=== PATIENT | male | born 1940 | race Hispanic/Latino ===

== ENCOUNTER 2018-11-22 05:30 | Emergency (ER) | payer MEDICARE ==
--- NOTE | 2018-11-22 05:59 | Emergency Department Report ---
Stated Complaint: RT FLANK PAIN - HPI History of Present Illness: Mr. Ratliff is a 78 yo male with hx of kidney stone and kidney "inflammation". Currently takiing antibiotics. He presents with severe right flank pain. MSE screening note: Focused history and physical exam performed. Due to findings the following was ordered: ED Disposition for MSE Condition: Stable Referrals: PRIMARY CARE, [Primary Care Provider] - 3-5 Days
[2018-11-22] MEDS ORDERED: HYDROmorphone 1 MG/1 ML INJ IV ONE ×2 (06:00→07:08)
[2018-11-22] MEDS ORDERED: SODIUM CHLORIDE 0.9% 500 ML 500 ML IV ONE (06:00)
[2018-11-22] MEDS ORDERED: ONDANSETRON 4 MG/2 ML INJ IV ONE (06:01)
[2018-11-22 06:36] VITALS: BP 115/68
[2018-11-22 06:53] LABS: Albumin 3.8 g/dL (3.9-5); Calcium 8.8 mg/dL (8.4-10.2)
[2018-11-22 06:58] LABS: Hemoglobin 13.8 gm/dl (11.8-15.2); Mean Corpuscular HGB Conc 34 % (32-34); Mean Corpuscular Volume 91 fl (84-94); Red Blood Count 4.51 M/mm3 (3.65-5.03); Red Cell Distribution Width 13.5 % (13.2-15.2)
[2018-11-22 06:59] LABS: Basophils # (Auto) 0.1 K/mm3 (0.0-0.1); Basophils % (Auto) 0.8 % (0.0-1.8); Eosinophils # (Auto) 0.2 K/mm3 (0.0-0.4); Eosinophils % (Auto) 1.8 % (0.0-4.3); Lymphocytes # (Auto) 1.5 K/mm3 (1.2-5.4); Lymphocytes % (Auto) 11.3 % (13.4-35.0); Monocytes # (Auto) 1.2 K/mm3 (0.0-0.8); Platelet Count 215 K/mm3 (140-440)
--- NOTE | 2018-11-22 07:20 | Emergency Department Report ---
HPI - General Chief Complaint: Abdominal Pain Time Seen by Provider: 11/22/18 06:56 - HPI HPI: Room 17 The patient is a 78-year-old male presenting with the chief complaint of right flank pain. Patient states for the past 2 nights she's had a constant pain in his right flank described as burning in nature. Patient denies dysuria or hematuria. Patient denies nausea vomiting. Patient states he's had oliguria. Patient admits to a subjective fever Location: [See above] Duration: [See above] Quality: [See above] Severity: [See above] Timing: [See above] Context: [See above] Modifying factors: [See above] Associated signs and symptoms: [see above] ED Past Medical Hx - Past Medical History Previous Medical History?: Yes Hx Hypertension: Yes Hx Diabetes: Yes Hx Kidney Stones: Yes Additional medical history: Pancreatitis - Family History Family history: no significant - Social History Smoking Status: Unknown if ever smoked Substance Use Type: None - Medications Home Medications: Home Medications Medication Instructions Recorded Confirmed Last Taken Type Ondansetron [Zofran ODT TAB] 8 mg PO Q8HR #20 tab.rapdis 11/22/18 Unknown Rx levoFLOXacin [Levofloxacin] 500 mg PO QDAY #10 tablet 11/22/18 Unknown Rx oxyCODONE /ACETAMINOPHEN [Percocet 1 - 2 tab PO Q6HR PRN #20 tablet 11/22/18 Unknown Rx 5/325] ED Review of Systems ROS: Stated complaint: RT FLANK PAIN Other details as noted in HPI Constitutional: fever (subjective) Eyes: denies: eye pain ENT: denies: throat pain Respiratory: no symptoms reported Cardiovascular: denies: chest pain Gastrointestinal: abdominal pain. denies: nausea, vomiting Genitourinary: denies: dysuria, hematuria Musculoskeletal: back pain Neurological: denies: headache Physical Exam - Physical Exam Vital Signs: Vital Signs 11/22/18 11/22/18 06:29 06:35 Temperature 98.1 F Pulse Rate 87 Respiratory 10 L 10 L Rate Blood Pressure 115/68 [Right] O2 Sat by Pulse 95 95 Oximetry Physical Exam: GENERAL: The patient is well-developed well-nourished male lying on stretcher appearing to be in mild discomfort. [] HEENT: Normocephalic. Atraumatic. Extraocular motions are intact. Patient has moist mucous membranes. NECK: Trachea midline CHEST/LUNGS: Clear to auscultation. There is no respiratory distress noted. HEART/CARDIOVASCULAR: Regular. There is no tachycardia. There is no gallop rub or murmur. ABDOMEN: Abdomen is soft, nontender. Patient has normal bowel sounds. There is no abdominal distention. SKIN: There is no rash. There is no edema. There is no diaphoresis. NEURO: The patient is awake, alert, and oriented. The patient is cooperative. The patient has normal speech MUSCULOSKELETAL: There is right CVA tenderness. There is no evidence of acute injury. ED Course Vital Signs 11/22/18 11/22/18 06:29 06:35 Temperature 98.1 F Pulse Rate 87 Respiratory 10 L 10 L Rate Blood Pressure 115/68 [Right] O2 Sat by Pulse 95 95 Oximetry - Reevaluation(s) Reevaluation #1: 11/22/18 09:05 Patient's pain controlled - Consultations Consultation #1: 11/22/18 09:47 Case discussed with urologist Dr. Vega-can see patient in the office Sunday ED Medical Decision Making - Lab Data Result diagrams: 11/22/18 06:23 11/22/18 06:23 Laboratory Tests 11/22/18 11/22/18 11/22/18 06:23 06:23 06:23 WBC 13.5 H RBC 4.51 Hgb 13.8 Hct 41.0 MCV 91 MCH 31 MCHC 34 RDW 13.5 Plt Count 215 Lymph % (Auto) 11.3 L [place] % (Auto) 9.0 H Eos % (Auto) 1.8 Baso % (Auto) 0.8 Lymph # 1.5 [place] # 1.2 H Eos # 0.2 Baso # 0.1 Seg Neutrophils % 77.1 H Seg Neutrophils # 10.4 H Sodium 139 Potassium 4.6 Chloride 100.9 Carbon Dioxide 24 Anion Gap 19 BUN 17 Creatinine 1.6 H Estimated GFR 42 BUN/Creatinine Ratio 11 Glucose 158 H Calcium 8.8 Total Bilirubin 0.80 AST 26 ALT 30 Alkaline Phosphatase 44 Total Protein 6.2 L Albumin 3.8 L Albumin/Globulin Ratio 1.6 Lipase 15 Urine Color Urine Turbidity Urine pH Ur Specific [place] Urine Protein Urine Glucose (UA) Urine Ketones Urine Blood Urine Nitrite Urine Bilirubin Urine Urobilinogen Ur Leukocyte Esterase Urine WBC (Auto) Urine RBC (Auto) U Epithel Cells (Auto) Urine Bacteria (Auto) Urine Mucus 11/22/18 08:19 WBC RBC Hgb Hct MCV MCH MCHC RDW Plt Count Lymph % (Auto) [place] % (Auto) Eos % (Auto) Baso % (Auto) Lymph # [place] # Eos # Baso # Seg Neutrophils % Seg Neutrophils # Sodium Potassium Chloride Carbon Dioxide Anion Gap BUN Creatinine Estimated GFR BUN/Creatinine Ratio Glucose Calcium Total Bilirubin AST ALT Alkaline Phosphatase Total Protein Albumin Albumin/Globulin Ratio Lipase Urine Color Yellow Urine Turbidity Cloudy Urine pH 5.0 Ur Specific [place] 1.018 Urine Protein 30 mg/dl Urine Glucose (UA) Neg Urine Ketones Neg Urine Blood Lg Urine Nitrite Neg Urine Bilirubin Neg Urine Urobilinogen < 2.0 Ur Leukocyte Esterase Lg Urine WBC (Auto) > 182.0 H Urine RBC (Auto) > 182.0 U Epithel Cells (Auto) 1.0 Urine Bacteria (Auto) 1+ Urine Mucus Few - Radiology Data Radiology results: report reviewed (CT abdomen and pelvis), image reviewed (CT abdomen and pelvis) [place] [address] Cat Scan Report Signed Patient: MATEO FERNANDES MR#: [id number] : 1940 Acct:[id number] Age/Sex: 78 / M ADM Date: 11/22/18 Loc: ED Attending Dr: Ordering Physician: Ching Sterling MD Date of Service: 11/22/18 Procedure(s): CT abdomen pelvis wo con Accession Number(s): [id number] cc: Ching Sterling MD CT ABDOMEN AND PELVIS WITHOUT CONTRAST HISTORY: Right flank pain for 2 days COMPARISON: 11/24/2015 TECHNIQUE: Axial CT images were obtained through the abdomen and pelvis without IV contrast. Sagittal and coronal reformatted images. All CT scans at this location are performed using CT dose reduction for ALARA by means of automated exposure control. FINDINGS: CT ABDOMEN: Lung Bases: Clear. Liver: Mild diffuse fatty infiltration. No mass or enlargement. Biliary: 4 or 5 calcified gallstones measuring up to 5 mm are noted in the gallbladder. No biliary dilatation or inflammation. Spleen: No significant abnormality. Unenlarged. Pancreas: No significant abnormality. Adrenals: No significant abnormality. Kidneys: Moderate to severe right hydronephrosis has developed. Multiple stones are identified in the right ureter. There are approximately 5 or 6 calcified stones in the distal right ureter measuring up to 6 mm. There are approximately 10 stones in the mid right ureter measuring up to 5 mm. A 9 mm stone is identified at the right ureteropelvic junction. A large stone in the right renal pelvis measures 2.1 cm. There are also 3 stones in the right kidney measuring 1-2 cm in greatest dimension. No left nephrolithiasis is identified. There are several renal sinus parapelvic cysts in both kidneys. Multiple stones are also identified in the bladder. Most of the stones or millimetric in size. There is a large stone measuring 2.3 cm. Lymphatics: No lymphadenopathy. Vasculature: Moderate diffuse calcifications in the aorta and iliac arteries. No aneurysm. Bowel/Peritoneum: No significant abnormality. No free air. No free fluid. Normal appendix. CT PELVIS: : Bladder stones. Osseous Structures: Mild osteopenia and degenerative changes in the spine. No acute osseous injury or suspicious bony lesion. Additional Findings: None IMPRESSION: Right nephrolithiasis as described above. There are several obstructing stones in the right ureter. Please see above. Multiple bladder stones are also identified. Multiple bilateral renal parapelvic cysts. Mild hepatic steatosis. Cholelithiasis. Atherosclerosis. Signer Name: Leonidas Flores Jr, MD Signed: 11/22/2018 8:07 AM Workstation Name: [id number] Transcribed By: TTR Dictated By: LEONIDAS FLORES JR, MD Electronically Authenticated By: LEONIDAS FLORES JR, MD Signed Date/Time: 11/22/18 0807 DD/ 0759 TD/TT: - Differential Diagnosis renal colic, pyelonephritis Critical care attestation.: If time is entered above; I have spent that time in minutes in the direct care of this critically ill patient, excluding procedure time. ED Disposition Clinical Impression: Acute right flank pain, Renal colic, UTI (urinary tract infection) Disposition: -01 TO HOME OR SELFCARE Is pt being admited?: No Does the pt Need Aspirin: No Condition: Stable Instructions: Renal Colic (ED) Additional Instructions: Return to the emergency department should you develop worsening symptoms, inability to tolerate food or liquids, high fever or any other concerns Prescriptions: levoFLOXacin [Levofloxacin] 500 mg PO QDAY #10 tablet oxyCODONE /ACETAMINOPHEN [Percocet 5/325] 1 - 2 tab PO Q6HR PRN #20 tablet PRN Reason: Pain Ondansetron [Zofran ODT TAB] 8 mg PO Q8HR #20 tab.rapdis Referrals: JUAN MANUEL VEGA MD [Staff Physician] - [facility] (Dr. Vega is a urologist. Please follow-up with him for further evaluation) Time of Disposition: 09:04
--- NOTE | 2018-11-22 08:11 | Cat Scan Report ---
CT ABDOMEN AND PELVIS WITHOUT CONTRAST HISTORY: Right flank pain for 2 days COMPARISON: 11/24/2015 TECHNIQUE: Axial CT images were obtained through the abdomen and pelvis without IV contrast. Sagittal and coronal reformatted images. All CT scans at this location are performed using CT dose reduction for ALARA by means of automated exposure control. FINDINGS: CT ABDOMEN: Lung Bases: Clear. Liver: Mild diffuse fatty infiltration. No mass or enlargement. Biliary: 4 or 5 calcified gallstones measuring up to 5 mm are noted in the gallbladder. No biliary di latation or inflammation. Spleen: No significant abnormality. Unenlarged. Pancreas: No significant abnormality. Adrenals: No significant abnormality. Kidneys: Moderate to severe right hydronephrosis has developed. Multiple stones are identified in the right ureter. There are approximately 5 or 6 calcified stones in the distal right ureter measuring u p to 6 mm. There are approximately 10 stones in the mid right ureter measuring up to 5 mm. A 9 mm sto ne is identified at the right ureteropelvic junction. A large stone in the right renal pelvis measure s 2.1 cm. There are also 3 stones in the right kidney measuring 1-2 cm in greatest dimension. No left nephrolithiasis is identified. There are several renal sinus parapelvic cysts in both kidneys. Multi ple stones are also identified in the bladder. Most of the stones or millimetric in size. There is a large stone measuring 2.3 cm. Lymphatics: No lymphadenopathy. Vasculature: Moderate diffuse calcifications in the aorta and iliac arteries. No aneurysm. Bowel/Peritoneum: No significant abnormality. No free air. No free fluid. Normal appendix. CT PELVIS: : Bladder stones. Osseous Structures: Mild osteopenia and degenerative changes in the spine. No acute osseous injury or suspicious bony lesion. Additional Findings: None IMPRESSION: Right nephrolithiasis as described above. There are several obstructing stones in the right ureter. P lease see above. Multiple bladder stones are also identified. Multiple bilateral renal parapelvic cys ts. Mild hepatic steatosis. Cholelithiasis. Atherosclerosis. Signer Name: Leonidas Flores Jr, MD Signed: 11/22/2018 8:07 AM Workstation Name: [id number]
[2018-11-22 08:49] LABS: Bacteria,Urine 1+ /HPF (Negative); Bilirubin,Urine NEG (Negative); Blood,Urine LG (Negative); Color,Urine Yellow (Yellow); Mucus,Urine FEW /HPF; Urobilinogen,Urine < 2.0 mg/dL (<2.0)
[2018-11-22 08:52] LABS: RBC,Urine > 182.0 /HPF (0.0-6.0); WBC,Urine > 182.0 /HPF (0.0-6.0)
[2018-11-22] MEDS ORDERED: levoFLOXacin 500 MG TAB PO ONE (08:58)
== END 2018-11-22 09:56 | disposition home or self-care (01) ==
LOC: ED 05:30
DX: N39.0 Urinary tract infection, site not specified (principal); N23 Unspecified renal colic; I10 Essential (primary) hypertension; E11.9 Type 2 diabetes mellitus without complications; Z87.442 Personal history of urinary calculi
CPT/HCPCS: 36415; 74176; 80053; 81001; 83690; 85025; 96374; 96375; 99285; J1170; J2405; J7040

== ENCOUNTER 2018-11-26 09:20 | Observation (INO) | payer MEDICARE ==
[2018-11-26] MEDS ORDERED: ONDANSETRON 4 MG/2 ML INJ IV STA (10:13)
[2018-11-26] MEDS ORDERED: SODIUM CHLORIDE 0.9% 1000 ML 500 ML IV ONE (10:13)
[2018-11-26 10:31] LABS: Hematocrit 40.2 % (35.5-45.6); Hemoglobin 13.9 gm/dl (11.8-15.2); Mean Corpuscular HGB Conc 35 % (32-34); Mean Corpuscular Volume 90 fl (84-94); Platelet Count 234 K/mm3 (140-440); Red Blood Count 4.45 M/mm3 (3.65-5.03); Red Cell Distribution Width 13.4 % (13.2-15.2)
--- NOTE | 2018-11-26 10:37 | Emergency Department Report ---
ED Male HPI - General Chief complaint: Tube Replacement Stated complaint: TUBING NEEDED/DOC ORDERED Time Seen by Provider: 11/26/18 09:53 Source: patient Mode of arrival: Ambulatory Limitations: No Limitations - History of Present Illness Initial comments: 78-year-old male with a past medical history of hypercholesterolemia and hypertension as well as diarrhea PT is presented to emergency department for reevaluation of his renal stones. He was initially seen and evaluated in the emergency Department on 11/22/2018 by the emergency room physician who was found to have right nephro physis with several obstructing stones in the right ureter and multiple bladder stones identified. The stones range in size in size from 2.3 cm down to 5 mm. There was about 10 stones that were calculated. After consulting with urology plan was to discharge and was discharged home on Levaquin, oxycodone, Zofran. After full evaluation today he was instructed to return to the emergency department for possible nephrostomy tube placement with interventional radiology up what she returns today. States that his pain is controlled with medication reports no fever, chills, sweats no chest pain or palpitations no nausea vomiting does have some pressure to the lower abdomen and the increased urge to urinate with no burning. Reports no diarrhea no rashes no malaise. Worsens with: urination denies: swelling, mass, fever, nausea/vomiting, incontinence - Related Data Previous Rx's Medication Instructions Recorded Last Taken Type Ondansetron [Zofran ODT TAB] 8 mg PO Q8HR #20 tab.rapdis 11/22/18 Unknown Rx levoFLOXacin [Levofloxacin] 500 mg PO QDAY #10 tablet 11/22/18 Unknown Rx oxyCODONE /ACETAMINOPHEN [Percocet 1 - 2 tab PO Q6HR PRN #20 tablet 11/22/18 Unknown Rx 5/325] Allergies Allergy/AdvReac Type Severity Reaction Status Date / Time Penicillins AdvReac HURTS ALL Unverified 11/24/15 11:17 OVER ED Review of Systems ROS: Stated complaint: TUBING NEEDED/DOC ORDERED Other details as noted in HPI Comment: All other systems reviewed and negative ED Past Medical Hx - Past Medical History Previous Medical History?: Yes Hx Hypertension: Yes Hx Diabetes: Yes Hx Kidney Stones: Yes Additional medical history: Pancreatitis - Social History Smoking Status: Never Smoker - Medications Home Medications: Home Medications Medication Instructions Recorded Confirmed Last Taken Type Ondansetron [Zofran ODT TAB] 8 mg PO Q8HR #20 tab.rapdis 11/22/18 Unknown Rx levoFLOXacin [Levofloxacin] 500 mg PO QDAY #10 tablet 11/22/18 Unknown Rx oxyCODONE /ACETAMINOPHEN [Percocet 1 - 2 tab PO Q6HR PRN #20 tablet 11/22/18 Unknown Rx 5/325] ED Physical Exam - General Limitations: No Limitations General appearance: alert, in no apparent distress - Head Head exam: Present: atraumatic, normocephalic - Eye Eye exam: Present: normal appearance, PERRL, EOMI Pupils: Present: normal accommodation - ENT ENT exam: Present: mucous membranes moist - Neck Neck exam: Present: normal inspection, full ROM - Respiratory Respiratory exam: Present: normal lung sounds bilaterally. Absent: respiratory distress - Cardiovascular Cardiovascular Exam: Present: regular rate, normal rhythm. Absent: systolic murmur, diastolic murmur, rubs, gallop - GI/Abdominal GI/Abdominal exam: Present: soft, tenderness (mild tenderness to the lower abdomen with palpation.), normal bowel sounds, other (no colon sign, no Hsu Dueñas, no Rovsing). Absent: rebound, rigid, organomegaly, mass, bruit, pulsatile mass - Rectal Rectal exam: Present: deferred - Extremities Exam Extremities exam: Present: normal inspection, full ROM, normal capillary refill - Back Exam Back exam: Present: normal inspection, CVA tenderness (R). Absent: vertebral tenderness - Neurological Exam Neurological exam: Present: alert, oriented X3 - Psychiatric Psychiatric exam: Present: normal affect, normal mood - Skin Skin exam: Present: warm, dry, intact, normal color. Absent: rash ED Course Vital Signs 11/26/18 11/26/18 11/26/18 09:20 10:44 10:45 Temperature 97.9 F 98.1 F Pulse Rate 18 L 79 Respiratory 16 14 14 Rate Blood Pressure 152/76 Blood Pressure 131/72 [Right] O2 Sat by Pulse 100 98 97 Oximetry - Consultations Consultation #1: 11/26/18 10:37 Case was discussed with the attending Dr. Smith who had a discussion with Dr. Cardenas who is planning to place a nephrostomy tube plan is to admit after labs and antibiotics. Consultation #2: 11/26/18 10:43 Case was discussed with urology to make aware that the Bob Ratliff was in the emergency department. They are aware of doxepin evaluating the patient at bedside and will follow along if needed during the admission process Consultation #3: 11/26/18 10:43 Phone as attend Abhniav for admission and they are aware of chills with mild but did request to phone back to the ED. Requested that I wait for the 11:00 AM ED Medical Decision Making - Lab Data Result diagrams: 11/26/18 10:21 - Medical Decision Making 78-year-old male with obstructive uropathy due to kidney stones with CT scan confirming certain several stones largest ranging 2.3 cm and return to the emergency department for further evaluation and an approximately [address] greenwood has seen him at bedside plan is to admit hydrated and placed on IV antibiotics and place also nephrostomy tube for removal of the stones. Urology was consult and case was discussed as well. He's been admitted to the hospital ist Dr. Lynne 11:06AM. Critical care attestation.: If time is entered above; I have spent that time in minutes in the direct care of this critically ill patient, excluding procedure time. ED Disposition Clinical Impression: Obstructive uropathy Disposition: OP ADMIT IP TO THIS HOSP Is pt being admited?: Yes Does the pt Need Aspirin: No Condition: Stable
--- NOTE | 2018-11-26 11:00 | Event Note ---
Date of service: 11/26/18 Face to Face: Previous medical records are reviewed and appreciated. This is a 78-year-old gentleman with reported chronic flank pain, seen in this department on November 22, had a CT scan of the abdomen and pelvis which demonstrated multiple stones, patient's case was discussed with on-call urology, and he was referred to outpatient urology. His urologist has referred him to the emergency room for evaluation for possible percutaneous nephrostomy. Dr Cardenas of interventional radiology has evaluated the patient. Urology on-call, Dr. Taylor has been consulted. The patient is afebrile with reassuring vital signs, is nontoxic, and very well-appearing. He endorses an allergy to penicillins, but cannot further elaborate on the nature of his allergic reaction. He is in no acute distress at this time. plan to admit for obs for percutaneous nephrostomy PA to admit Vital Signs 11/26/18 11/26/18 11/26/18 09:20 10:44 10:45 Temperature 97.9 F 98.1 F Pulse Rate 18 L 79 Respiratory 16 14 14 Rate Blood Pressure 152/76 Blood Pressure 131/72 [Right] O2 Sat by Pulse 100 98 97 Oximetry
[2018-11-26 11:07] LABS: Calcium 9.3 mg/dL (8.4-10.2)
--- NOTE | 2018-11-26 12:08 | Progress Note ---
Assessment and Plan consult dictated needs R perc and iv antibiotics Subjective Date of service: 11/26/18 Principal diagnosis: hydro stones Objective - Constitutional Vitals: Vital Signs - 12hr 11/26/18 11/26/18 11/26/18 09:20 10:44 10:45 Temperature 97.9 F 98.1 F Pulse Rate 18 L 79 Respiratory 16 14 14 Rate Blood Pressure 152/76 Blood Pressure 131/72 [Right] O2 Sat by Pulse 100 98 97 Oximetry - Labs CBC & Chem 7: 11/26/18 10:21 11/26/18 10:21 Labs: Abnormal lab results 11/26/18 11/26/18 Range/Units 10:21 10:21 WBC 12.1 H (4.5-11.0) K/mm3 MCHC 35 H (32-34) % Glucose 133 H (75-100) mg/dL Medications & Allergies - Medications Allergies/Adverse Reactions: Allergies Penicillins Adverse Reaction (Unverified 11/24/15 11:17) HURTS ALL OVER Home Medications: Home Medications Medication Instructions Recorded Confirmed Last Taken Type Ondansetron [Zofran ODT TAB] 8 mg PO Q8HR #20 tab.rapdis 11/22/18 Unknown Rx levoFLOXacin [Levofloxacin] 500 mg PO QDAY #10 tablet 11/22/18 Unknown Rx oxyCODONE /ACETAMINOPHEN [Percocet 1 - 2 tab PO Q6HR PRN #20 tablet 11/22/18 Unknown Rx 5/325] Active Medications: Generic Name Dose Route Start Last Admin Trade Name Freq PRN Reason Stop Dose Admin Levofloxacin/Dextrose 750 mg in 150 mls @ 100 mls/hr 11/26/18 10:54 11/26/18 11:26 Levaquin 750mg/150ml IV 11/26/18 12:23 100 mls/hr ONCE ONE Administration
--- NOTE | 2018-11-26 12:16 | Consultation ---
History of Present Illness - Reason for Consult Consult date: 11/26/18 Right renal colic - History of Present Illness 78-year-old male with a past medical history of hypercholesterolemia and hypertension as well as diarrhea PT is presented to emergency department for reevaluation of his renal stones. He was initially seen and evaluated in the emergency Department on 11/22/2018 by the emergency room physician who was found to have right nephro physis with several obstructing stones in the right ureter and multiple bladder stones identified. The stones range in size in size from 2.3 cm down to 5 mm. There was about 10 stones that were calculated. After consulting with urology plan was to discharge and was discharged home on Levaquin, oxycodone, Zofran. After full evaluation today he was instructed to return to the emergency department for possible nephrostomy tube placement with interventional radiology up what she returns today. States that his pain is controlled with medication reports no fever, chills, sweats no chest pain or palpitations no nausea vomiting does have some pressure to the lower abdomen and the increased urge to urinate with no burning. Reports no diarrhea no rashes no malaise. Vascular consultation. Patient has a history of extensive right renal calculi status post at least 5 lithotripsy procedures performed 1 year ago. Due to lack of communication from his urologist, the patient stopped following up with his urologist. The patient currently has mild chronic renal insufficiency and right-sided renal calculi with steinstrasse (probably from prior lithotripsy) and a large bladder calculi with numerous other bladder stones. Patient also has leukocytosis no fevers. Review of Systems ROS: Stated complaint: TUBING NEEDED/DOC ORDERED Other details as noted in HPI Comment: All other systems reviewed and negative Past Medical Hx - Past Medical History Previous Medical History?: Yes Hx Hypertension: Yes Hx Diabetes: Yes Hx Kidney Stones: Yes Additional medical history: Pancreatitis - Social History Smoking Status: Never Smoker Medications and Allergies Allergies Allergy/AdvReac Type Severity Reaction Status Date / Time Penicillins AdvReac HURTS ALL Verified 11/26/18 12:29 OVER Home Medications Medication Instructions Recorded Confirmed Last Taken Type Ondansetron [Zofran ODT TAB] 8 mg PO Q8HR #20 tab.rapdis 11/22/18 Unknown Rx levoFLOXacin [Levofloxacin] 500 mg PO QDAY #10 tablet 10/04/19 Unknown Rx oxyCODONE /ACETAMINOPHEN [Percocet 1 - 2 tab PO Q6HR PRN #20 tablet 11/22/18 Unknown Rx 5/325] Active Meds: Active Medications Levofloxacin/Dextrose (Levaquin 750mg/150ml) 750 mg in 150 mls @ 100 mls/hr IV ONCE ONE Stop: 11/26/18 12:23 Last Admin: 11/26/18 11:26 Dose: 100 mls/hr Documented by: Review of Systems All systems: negative (see HPI) Exam - Constitutional Vitals: Temp Pulse Resp BP Pulse Ox 98.1 F 79 14 131/72 97 11/26/18 10:45 11/26/18 10:45 11/26/18 10:45 11/26/18 10:45 11/26/18 10:45 General appearance: Present: mild distress (right flank discomfort) - EENT Eyes: Present: EOM intact ENT: hearing intact - Respiratory Respiratory effort: normal - Abdominal General gastrointestinal: Present: tender (right flank discomfort) - Psychiatric Psychiatric: appropriate mood/affect, cooperative Results - Labs CBC & Chem 7: 11/26/18 10:21 11/26/18 10:21 Labs: Abnormal lab results 11/26/18 11/26/18 Range/Units 10:21 10:21 WBC 12.1 H (4.5-11.0) K/mm3 MCHC 35 H (32-34) % Glucose 133 H (75-100) mg/dL - Imaging and Cardiology CT scan - abdomen: report reviewed, image reviewed Assessment and Plan 78 year old male with extensive renal calculi and bladder calculi with leukocytosis and renal insufficiency who presents with right flank pain. Right pyonephrosis or hydronephrosis. Due to extensive stone disease, will need PCN placement. Discussed with Dr. Taylor. Not on any anticoagulation or plavix. R/B/A right percutaneous nephrostomy tube discussed with patient. Patient will ultimately need PCNL due to history of failed lithotripsy. Discussed with Dr. Taylor. Urine culture will be obtained from nephrostomy tube.
[2018-11-26] MEDS ORDERED: HYDROmorphone 1 MG/1 ML INJ IV ONE (12:20)
[2018-11-26] MEDS ORDERED: HYDROmorphone 1 MG/1 ML INJ ONE (12:23)
[2018-11-26] MEDS ORDERED: LIDOCAINE (2%) 20 MG/1 ML VIAL 20 ML MDV INFILTRATI ONE (12:48)
[2018-11-26] MEDS ORDERED: SODIUM CHLORIDE IRRI 500 ML 500 ML IR ONE (12:48)
[2018-11-26] MEDS: fentaNYL 100 MCG/2 ML INJ ONE ×4 (13:20→13:38)
[2018-11-26] MEDS: MIDAZOLAM 2 MG/2 ML INJ ONE ×4 (13:20→13:38)
--- NOTE | 2018-11-26 14:15 | Operative Report ---
Operative Report Operative Report: EXAM: 1. Ultrasound and fluoroscopic guided access of the lower posterior calyx of the right kidney 2. Diagnostic injection of the right kidney through the access needle 3. Nephrostogram of the right kidney 4. Percutaneous nephrostomy tube placement of the right kidney DATE: 11/26/18 MUSHROOM CUTTER: FRANKLIN LÓPEZ MD INDICATION: 78-year-old male with right-sided hydronephrosis/pyonephrosis with leukocytosis and right flank pain. MEDICATIONS: Please see nursing report for full details. DEVICES: 8 Canadian nephrostomy tube CONTRAST: 10 mL of nonionic contrast PROCEDURE: The risks, benefits, and alternatives were discussed with the patient; written informed consent was obtained. The patient's back was prepped and draped in a sterile fashion. The patient's puncture site was anesthetized with lidocaine. Under direct ultrasound guidance, the right lower pole posterior calyx was accessed with a 21-gauge needle. Urine was aspirated. Contrast was injected demonstrating contrast passing through the right collecting system. 0.018 inch wire was passed into the collecting system. Needle was exchanged for a 6 Canadian Accu stick system. 6 Canadian Accustick system was advanced over the wire and passed into the collecting system. Wire, inner dilator and cannula were removed. Contrast was injected confirming position within the collecting system. Nephrostogram was performed demonstrating multiple right-sided renal calculi with extensive ureteral calculi and a large bladder calculi with multiple smaller bladder calculi. There is moderate right-sided hydronephrosis. 0.035 inch Glidewire was advanced through a vertebral catheter and negotiated into the bladder. 0.035 inch Amplatz wire was advanced through the vertebral catheter and the transitional dilator was removed. 8 Canadian nephrostomy tube was advanced over the wire. Wire was removed. [place] loop was performed in the renal pelvis. Contrast was injected into the nephrostomy tube confirming position within the collecting system. Contrast was aspirated. The nephrostomy tube was sutured in place with Ethilon. Sterile dressing applied. Patient tolerated the procedure well. She was transferred to the floor in stable condition. FINDINGS: Right-sided urine was moderately cloudy compatible with infection and sent for urine culture. IMPRESSION: 1. Successful nephrostogram of the right kidney demonstrating extensive right- sided calculi with moderate right-sided hydronephrosis and pyonephrosis. CT scan further evaluates calculi. 2. Percutaneous nephrostomy tube placement in the lower posterior calyx of the right kidney.
[2018-11-26] MEDS ORDERED: ONDANSETRON 4 MG/2 ML INJ IV PRN (16:09)
[2018-11-26] MEDS ORDERED: ACETAMINOPHEN 325 MG TAB PO PRN (16:09)
--- NOTE | 2018-11-26 16:18 | History and Physical Report ---
History of Present Illness Date of examination: 11/26/18 Date of admission: 11/26/18 12:32 Chief complaint: Kidney stone History of present illness: 78-year-old male with past medical history pertinent for hypertension, hyperlipidemia, hernia postrepair, renal stones was sent from Dr. Taylor office for the management of multiple obstructive right ureteral stone and bladder stone. Patient admitted for lower abdominal and right flank pain. Patient was presented on 11/22/2018 to the emergency department and was diagnosed with several obstructive right ureteral stone, multiple bladder stone and was discharged home with pain medications. Patient went to Dr. Taylor office for follow-up and sent to the emergency department and Dr. Cardenas was consulted and placed a right percutaneous nephrostomy tube. Patient was hemodynamically stable. Past History Past Medical History: hypertension, hyperlipidemia Past Surgical History: hernia repair Social history: full code. denies: smoking, alcohol abuse, prescription drug abuse, IV drug use Family history: diabetes (father), other (no family history of stones) Medications and Allergies Allergies Allergy/AdvReac Type Severity Reaction Status Date / Time Penicillins AdvReac HURTS ALL Verified 11/26/18 12:29 OVER Home Medications Medication Instructions Recorded Confirmed Last Taken Type Ondansetron [Zofran ODT TAB] 8 mg PO Q8HR #20 tab.rapdis 11/22/18 Unknown Rx levoFLOXacin [Levofloxacin] 500 mg PO QDAY #10 tablet 11/22/18 Unknown Rx oxyCODONE /ACETAMINOPHEN [Percocet 1 - 2 tab PO Q6HR PRN #20 tablet 11/22/18 Unknown Rx 5/325] Active Meds: Active Medications Acetaminophen (Tylenol) 650 mg PO Q4H PRN PRN Reason: Pain MILD(1-3)/Fever >100.5/ROBLERO Ondansetron HCl (Zofran) 4 mg IV Q8H PRN PRN Reason: Nausea And Vomiting Oxycodone/Acetaminophen (Percocet 5/325) 1 tab PO Q6H PRN PRN Reason: Pain, Moderate (4-6) Sodium Chloride (Sodium Chloride Flush Syringe 10 Ml) 10 ml IV BID ASHLEY Sodium Chloride (Sodium Chloride Flush Syringe 10 Ml) 10 ml IV PRN PRN PRN Reason: LINE FLUSH Exam - Physical Exam Narrative exam: Not in cardiopulmonary distress. The patient appeared well nourished and normally developed. Vital signs as documented. Head exam is unremarkable. No scleral icterus . Neck is without jugular venous distension, thyromegaly, or carotid bruits. Lungs are clear to auscultation. Cardiac exam reveals regular rate and Rhythm. Abdominal exam reveals normal bowel sounds, no masses, no organomegaly and no aortic enlargement. Extremities are nonedematous and both femoral and pedal pulses are normal. FACING END TRIMMER: Alert and oriented 3. No focal weakness. - Constitutional Vitals: Temp Pulse Resp BP Pulse Ox 98.1 F 79 12 131/72 97 11/26/18 10:45 11/26/18 10:45 11/26/18 12:28 11/26/18 10:45 11/26/18 10:45 Results - Labs CBC & Chem 7: 11/26/18 10:21 11/26/18 10:21 Labs: Laboratory Last Values WBC 12.1 K/mm3 (4.5-11.0) H 11/26/18 10:21 RBC 4.45 M/mm3 (3.65-5.03) 11/26/18 10:21 Hgb 13.9 gm/dl (11.8-15.2) 11/26/18 10:21 Hct 40.2 % (35.5-45.6) 11/26/18 10:21 MCV 90 fl (84-94) 11/26/18 10:21 MCH 31 pg (28-32) 11/26/18 10:21 MCHC 35 % (32-34) H 11/26/18 10:21 RDW 13.4 % (13.2-15.2) 11/26/18 10:21 Plt Count 234 K/mm3 (140-440) 11/26/18 10:21 Sodium 139 mmol/L (137-145) 11/26/18 10:21 Potassium 4.3 mmol/L (3.6-5.0) 11/26/18 10:21 Chloride 100.4 mmol/L (98-107) 11/26/18 10:21 Carbon Dioxide 25 mmol/L (22-30) 11/26/18 10:21 Anion Gap 18 mmol/L 11/26/18 10:21 BUN 18 mg/dL (9-20) 11/26/18 10:21 Creatinine 1.5 mg/dL (0.8-1.5) 11/26/18 10:21 Estimated GFR 45 ml/min 11/26/18 10:21 BUN/Creatinine Ratio 12 % 11/26/18 10:21 Glucose 133 mg/dL (75-100) H 11/26/18 10:21 Calcium 9.3 mg/dL (8.4-10.2) 11/26/18 10:21 Assessment and Plan Assessment and plan: Obstructive right ureteral stone, bladder stone - Status post right percutaneous nephrostomy tube placement by IR - Patient tolerated the procedure well - Urology consulted - Pain control Suspected UTI - Patient is on IV Levaquin because patient is allergic to penicillin - Urinalysis is pending Leukocytosis - Due to the above Hypertension - Continue to monitor DVT prophylaxis -SCDs I don't know if patient need surgery Disposition - Admit to the floor Advance Directives: Yes VTE prophylaxis?: Chemical Plan of care discussed with patient/family: Yes
[2018-11-26] MEDS: oxyCODONE /ACETAMINOPHEN 5-325MG TAB PO PRN (21:06)
[2018-11-26 21:32] LABS: Bilirubin,Urine NEG (Negative); Blood,Urine LG (Negative); Color,Urine Yellow (Yellow); Hyaline Casts,Urine 1 /LPF; Mucus,Urine FEW /HPF; Protein,Urine <15 mg/dL mg/dL (Negative); Urobilinogen,Urine < 2.0 mg/dL (<2.0)
[2018-11-27] MEDS: oxyCODONE /ACETAMINOPHEN 5-325MG TAB PO PRN ×3 (03:42→19:59)
[2018-11-27 05:40] LABS: Basophils % (Auto) 0.6 % (0.0-1.8); Eosinophils # (Auto) 0.3 K/mm3 (0.0-0.4); Eosinophils % (Auto) 3.3 % (0.0-4.3); Hematocrit 37.2 % (35.5-45.6); Hemoglobin 12.6 gm/dl (11.8-15.2); Lymphocytes # (Auto) 1.5 K/mm3 (1.2-5.4); Lymphocytes % (Auto) 18.4 % (13.4-35.0); Mean Corpuscular HGB Conc 34 % (32-34); Mean Corpuscular Volume 91 fl (84-94); Monocytes % (Auto) 12.9 % (0.0-7.3); Platelet Count 211 K/mm3 (140-440); Red Blood Count 4.09 M/mm3 (3.65-5.03); Red Cell Distribution Width 13.2 % (13.2-15.2)
[2018-11-27 06:11] LABS: BUN/Creatinine Ratio 15; Blood Urea Nitrogen 12 mg/dL (9-20); Calcium 8.5 mg/dL (8.4-10.2); Hemolysis Index 15
--- NOTE | 2018-11-27 09:59 | Cat Scan Report ---
CT ABDOMEN AND PELVIS WITHOUT CONTRAST HISTORY: renal calculi. COMPARISON: 11/22/2018 TECHNIQUE: Helical CT images of the abdomen and pelvis were obtained without administration of intrav enous contrast. Sagittal and coronal reformatted images were reviewed. All CT scans at this location are performed using CT dose reduction for ALARA by means of automated exposure control. FINDINGS: Abdomen/pelvis: A right nephrostomy tube has been placed since the previous examination which appear s in good position. Several small stones are again identified in the mid to distal left ureter. The n umber of stones appears relatively stable although some of the proximal ureteral stones have advanced distally. Large stone in the right renal pelvis measuring up to 2.1 cm is unchanged. Stones near the superior pole of the right kidney are also unchanged. No left nephrolithiasis is appreciated. Multip le bilateral renal sinus cysts are unchanged. Multiple bladder stones are also unchanged with the lar gest stone measuring 2.4 cm. Small calcified gallstones are again identified. No biliary dilatation. Mild fatty infiltration of th e liver is again noted. The pancreas, spleen, adrenal glands and bowel loops remain unremarkable. Moderate to severe diffuse aortic and iliac calcifications. No aneurysm. No free fluid, acute inflamm ation or free air. Lungs/bones: The lung bases are clear. Normal heart size. Thoracolumbar spondylosis is stable. IMPRESSION: Right nephrostomy tube placement since 11/22/2018. No hydronephrosis. Right renal, right ureteral and bladder stones are again noted as described above. No new acute process is appreciated. Signer Name: Leonidas Flores Jr, MD Signed: 11/27/2018 9:55 AM Workstation Name: [id number]
--- NOTE | 2018-11-27 10:07 | Progress Note ---
Assessment and Plan Assessment and plan: Obstructive right ureteral stone, bladder stone, was hydronephrosis - Status post right percutaneous nephrostomy tube placement by IR 11/27/18 - Patient tolerated the procedure well - Urology consulted - Pain control - Repeat CT today showed right ureteral and bladder stone, and changes from previous study UTI - Patient is on IV Levaquin because patient is allergic to penicillin - Urinalysis suggestive of UTI Leukocytosis - Due to the above - resolved Hypertension - Continue to monitor DVT prophylaxis -SCDs for now Disposition - Per urology History Interval history: Patient was seen and evaluated this morning, patient didn't have any complaints. Abdominal and right flank pain is controlled. Hospitalist Physical - Physical exam Narrative exam: Not in cardiopulmonary distress. The patient appeared well nourished and normally developed. Vital signs as documented. Head exam is unremarkable. No scleral icterus . Neck is without jugular venous distension, thyromegaly, or carotid bruits. Lungs are clear to auscultation. Cardiac exam reveals regular rate and Rhythm. Abdominal exam reveals normal bowel sounds, no masses, no organomegaly and no aortic enlargement. Extremities are nonedematous and both femoral and pedal pulses are normal. STRENGTH AND CONDITIONING COACH: Alert and oriented 3. No focal weakness. - Constitutional Vitals: Temp Pulse Resp BP Pulse Ox 98.3 F 68 18 135/73 94 11/27/18 07:50 11/27/18 09:43 11/27/18 09:43 11/27/18 07:50 11/27/18 07:50 General appearance: Present: mild distress (right flank discomfort) Results - Labs CBC & Chem 7: 11/27/18 05:17 11/27/18 05:17 Labs: Laboratory Last Values WBC 8.0 K/mm3 (4.5-11.0) 11/27/18 05:17 RBC 4.09 M/mm3 (3.65-5.03) 11/27/18 05:17 Hgb 12.6 gm/dl (11.8-15.2) 11/27/18 05:17 Hct 37.2 % (35.5-45.6) 11/27/18 05:17 MCV 91 fl (84-94) 11/27/18 05:17 MCH 31 pg (28-32) 11/27/18 05:17 MCHC 34 % (32-34) 11/27/18 05:17 RDW 13.2 % (13.2-15.2) 11/27/18 05:17 Plt Count 211 K/mm3 (140-440) 11/27/18 05:17 Lymph % (Auto) 18.4 % (13.4-35.0) 11/27/18 05:17 [place] % (Auto) 12.9 % (0.0-7.3) H 11/27/18 05:17 Eos % (Auto) 3.3 % (0.0-4.3) 11/27/18 05:17 Baso % (Auto) 0.6 % (0.0-1.8) 11/27/18 05:17 Lymph # 1.5 K/mm3 (1.2-5.4) 11/27/18 05:17 [place] # 1.0 K/mm3 (0.0-0.8) H 11/27/18 05:17 Eos # 0.3 K/mm3 (0.0-0.4) 11/27/18 05:17 Baso # 0.0 K/mm3 (0.0-0.1) 11/27/18 05:17 Seg Neutrophils % 64.8 % (40.0-70.0) 11/27/18 05:17 Seg Neutrophils # 5.2 K/mm3 (1.8-7.7) 11/27/18 05:17 Sodium 138 mmol/L (137-145) 11/27/18 05:17 Potassium 3.6 mmol/L (3.6-5.0) 11/27/18 05:17 Chloride 101.7 mmol/L (98-107) 11/27/18 05:17 Carbon Dioxide 24 mmol/L (22-30) 11/27/18 05:17 Anion Gap 16 mmol/L 11/27/18 05:17 BUN 12 mg/dL (9-20) 11/27/18 05:17 Creatinine 0.8 mg/dL (0.8-1.5) 11/27/18 05:17 Estimated GFR > 60 ml/min 11/27/18 05:17 BUN/Creatinine Ratio 15 % 11/27/18 05:17 Glucose 137 mg/dL (75-100) H 11/27/18 05:17 Calcium 8.5 mg/dL (8.4-10.2) 11/27/18 05:17 Urine Color Yellow (Yellow) 11/26/18 19:15 Urine Turbidity Clear (Clear) 11/26/18 19:15 Urine pH 6.0 (5.0-7.0) 11/26/18 19:15 Ur Specific [place] 1.015 (1.003-1.030) 11/26/18 19:15 Urine Protein <15 mg/dl mg/dL (Negative) 11/26/18 19:15 Urine Glucose (UA) Neg mg/dL (Negative) 11/26/18 19:15 Urine Ketones Neg mg/dL (Negative) 11/26/18 19:15 Urine Blood Lg (Negative) 11/26/18 19:15 Urine Nitrite Neg (Negative) 11/26/18 19:15 Urine Bilirubin Neg (Negative) 11/26/18 19:15 Urine Urobilinogen < 2.0 mg/dL (<2.0) 11/26/18 19:15 Ur Leukocyte Esterase Sm (Negative) 11/26/18 19:15 Urine WBC (Auto) 30.0 /HPF (0.0-6.0) H 11/26/18 19:15 Urine RBC (Auto) 34.0 /HPF (0.0-6.0) 11/26/18 19:15 Hyaline Casts 1 /LPF 11/26/18 19:15 Urine Mucus Few /HPF 11/26/18 19:15 Active Medications - Current Medications Current Medications: Generic Name Dose Route Start Last Admin Trade Name Freq PRN Reason Stop Dose Admin Acetaminophen 650 mg 11/26/18 16:09 Tylenol PO Q4H PRN Pain MILD(1-3)/Fever >100.5/ROBLERO Levofloxacin/Dextrose 500 mg in 100 mls @ 100 mls/hr 11/27/18 10:00 11/27/18 09:24 Levaquin 500mg/100ml IV 100 mls/hr Q24HR ASHLEY Administration Protocol Ondansetron HCl 4 mg 11/26/18 16:09 Zofran IV Q8H PRN Nausea And Vomiting Oxycodone/Acetaminophen 1 tab 11/26/18 16:09 11/27/18 03:42 Percocet 5/325 PO 1 tab Q6H PRN Administration Pain, Moderate (4-6) Sodium Chloride 10 ml 11/26/18 22:00 11/27/18 09:41 Sodium Chloride Flush Syringe 10 Ml IV 10 ml BID ASHLEY Administration Sodium Chloride 10 ml 11/26/18 16:09 Sodium Chloride Flush Syringe 10 Ml IV PRN PRN LINE FLUSH
[2018-11-27] MEDS: POLYETHYLENE GLYCOL 3350 17 GM POWDER PO SCH (16:26)
[2018-11-28] MEDS: oxyCODONE /ACETAMINOPHEN 5-325MG TAB PO PRN (06:00)
--- NOTE | 2018-11-28 09:25 | Discharge Summary ---
Providers - Providers Date of Admission: 11/26/18 12:32 Date of discharge: 11/28/18 Attending physician: JUANITO CUEVAS MD 11/26/18 10:28 Consult to Physician [CONS] Routine Comment: Consulting Provider: REHANA DUNN Physician Instructions: Reason For Exam: Renal stones with obstructive uropathy 11/26/18 10:31 Consult to Physician [CONS] Routine Comment: Consulting Provider: FRANKLIN LÓPEZ Physician Instructions: Reason For Exam: Renal stones with obstructive uropathy 11/28/18 08:36 Physical Therapy Evaluation and Treat [CONS] Routine Comment: Reason For Exam: Weakness Primary care physician: ENE BOWER Hospitalization Reason for admission: obstructive uropathy, multiple bladder and ureteral stone Condition: Stable Pertinent studies: CT abdomen and pelvis Hospital course: 78-year-old male with past medical history pertinent for hypertension, hyperlipidemia, hernia postrepair, renal stones was sent from Dr. Dunn office for the management of multiple obstructive right ureteral stone and bladder stone. Patient admitted for lower abdominal and right flank pain. Patient was presented on 11/22/2018 to the emergency department and was diagnosed with several obstructive right ureteral stone, multiple bladder stone and was discharged home with pain medications. Patient went to Dr. Dunn office for follow-up and sent to the emergency department and Dr. López was consulted and placed a right percutaneous nephrostomy tube. Patient was hemodynamically stable. Patient admitted to the hospital and had percutaneous nephrostomy tube, patient was placed on IV antibiotic for UTI. Repeat chest CT showed no change in the stone. I have discussed with Dr. dunn and he recommend to discharge and will follow him in the office. patient doesn't want to go to his previous urologist and will follow with Dr Peña in 1 week. Patient discharged with by mouth antibiotics for UTI. Was also given some pain medicines for pain control. The patient was hemodynamically stable at the time of discharge Disposition: DC-01 TO HOME OR SELFCARE Time spent for discharge: 32 minutes - Discharge Diagnoses (1) Acute right flank pain Status: Acute (2) Renal colic Status: Acute (3) UTI (urinary tract infection) Status: Acute Core Measure Documentation - Palliative Care Palliative Care/ Comfort Measures: Not Applicable - Core Measures Any of the following diagnoses?: none Exam - Physical Exam Narrative exam: Not in cardiopulmonary distress. The patient appeared well nourished and normally developed. Vital signs as documented. Head exam is unremarkable. No scleral icterus . Neck is without jugular venous distension, thyromegaly, or carotid bruits. Lungs are clear to auscultation. Cardiac exam reveals regular rate and Rhythm. Abdominal exam reveals normal bowel sounds, no masses, no organomegaly and no aortic enlargement. Extremities are nonedematous and both femoral and pedal pulses are normal. CHIEF JAILER: Alert and oriented 3. No focal weakness. - Constitutional Vitals: Temp Pulse Resp BP Pulse Ox 97.7 F 72 18 132/75 94 11/28/18 07:34 11/28/18 07:34 11/28/18 07:34 11/28/18 07:34 11/28/18 07:34 Plan Activity: no restrictions Weight Bearing Status: Full Weight Bearing Diet: low salt Follow up with: PRIMARY CARE, [Referring] - 7 Days REHANA DUNN MD [Staff Physician] - 7 Days Prescriptions: Ciprofloxacin HCl [Ciprofloxacin TAB] 250 mg PO BID #14 tablet Polyethylene Glycol 3350 [Miralax 3350] 17 gm PO QDAY #20 powd.pack oxyCODONE /ACETAMINOPHEN [Percocet 5/325 mg] 1 - 2 tab PO Q6HR PRN #10 tablet PRN Reason: Pain
[2018-11-28] MEDS: POLYETHYLENE GLYCOL 3350 17 GM POWDER PO SCH (10:51)
[2018-11-28 15:48] VITALS: BP 154/93
== END 2018-11-28 12:55 | disposition home or self-care (01) ==
LOC: ED 09:20 → 2B-ACE 12:32
PROVIDERS: ADMIT Family Medicine; ATTEND Internal Medicine
DX: N20.1 Calculus of ureter (principal); N21.0 Calculus in bladder; D72.829 Elevated white blood cell count, unspecified; I10 Essential (primary) hypertension; E78.5 Hyperlipidemia, unspecified
CPT/HCPCS: 36415; 50432; 74176; 80048; 81001; 85025; 85027; 87086; 96365; 96366; 96375; 97161; 99284; C1729; C1769; G0378; J1170; J1956; J2250; J2405; J3010; J7030; 96374; Q9967

== ENCOUNTER 2018-12-27 01:04 | Emergency (ER) | payer MEDICARE ==
[2018-12-27 03:28] VITALS: BP 137/84
--- NOTE | 2018-12-27 03:28 | Emergency Department Report ---
HPI - General Time Seen by Provider: 12/27/18 02:25 - HPI HPI: 78-year-old male presents to the emergency department with complaint of leaking from the bottom of his urine collection bag. The patient has a right-sided nephrostomy tube in place secondary to a recent history of obstructive uropathy with hydronephrosis and pyonephrosis. The patient is due to have surgery in [address] Taylor. He says that the leaking was occurring at the valve at the bottom of the collection bag secondary to the fact that he has been "using it a ton." Otherwise he denies any new or increased pain, fever, nausea, vomiting. ED Past Medical Hx - Past Medical History Previous Medical History?: Yes Hx Hypertension: Yes Hx Heart Attack/AMI: No Hx Congestive Heart Failure: No Hx Diabetes: Yes Hx Kidney Stones: Yes Hx Asthma: No Hx COPD: No Additional medical history: Pancreatitis - Surgical History Past Surgical History?: Yes Additional Surgical History: Hernia - Social History Smoking Status: Former Smoker - Medications Home Medications: Home Medications Medication Instructions Recorded Confirmed Last Taken Type Ondansetron [Zofran ODT TAB] 8 mg PO Q8HR #20 tab.rapdis 11/22/18 11/26/18 Unknown Rx Ciprofloxacin HCl [Ciprofloxacin 250 mg PO BID #14 tablet 11/28/18 Unknown Rx TAB] Polyethylene Glycol 3350 [Miralax 17 gm PO QDAY #20 powd.pack 11/28/18 Unknown Rx 3350] oxyCODONE /ACETAMINOPHEN [Percocet 1 - 2 tab PO Q6HR PRN #10 tablet 11/28/18 Unknown Rx 5/325 mg] ED Review of Systems ROS: Stated complaint: TINSLEY BAG LEAK Other details as noted in HPI Comment: All other systems reviewed and negative Constitutional: denies: chills, fever Respiratory: denies: shortness of breath Cardiovascular: denies: chest pain Gastrointestinal: denies: abdominal pain Genitourinary: denies: dysuria, hematuria, discharge Musculoskeletal: denies: back pain Physical Exam - Physical Exam Vital Signs: Vital Signs 12/27/18 01:12 Pulse Rate 89 Respiratory 20 Rate Blood Pressure 169/96 O2 Sat by Pulse 97 Oximetry Physical Exam: GENERAL: The patient is well-developed well-nourished. HENT: Normocephalic. Atraumatic. Patient has moist mucous membranes. EYES: Extraocular motions are intact. NECK: Supple. Trachea is midline. ABDOMEN: Abdomen is soft, nontender. Patient has normal bowel sounds. There is no abdominal distention. SKIN: Skin is warm and dry. NEURO: The patient is awake, alert, and oriented. The patient is cooperative. The patient has no focal neurologic deficits. Normal speech. MUSCULOSKELETAL: There is no tenderness or deformity. There is no evidence of acute injury. ED Course Vital Signs 12/27/18 01:12 Pulse Rate 89 Respiratory 20 Rate Blood Pressure 169/96 O2 Sat by Pulse 97 Oximetry ED Medical Decision Making - Medical Decision Making The patient presented with the complaint of some leaking from the bottom valve portion of the urine collection back of his right sided nephrostomy tube. At first, the nursing staff was able to switch out the bag and the portion of the bag with the valve that allows the urine to drain or be emptied was no longer leaking. However, he began having some leakage from the portion where the tube meets the collection bag. We were able to fix this leak and it is draining appropriately. The patient understands that he should follow-up with his urologist, but will return to the emergency Department with any worsening of his symptoms or any acute distress. Critical Care Time: No Critical care attestation.: If time is entered above; I have spent that time in minutes in the direct care of this critically ill patient, excluding procedure time. ED Disposition Clinical Impression: Complication of nephrostomy Disposition: DC-01 TO HOME OR SELFCARE Is pt being admited?: No Condition: Stable Instructions: Nephrostomy Tube Care (ED) Additional Instructions: Please follow-up with your urologist regarding your leaking urine collection bag from the nephrostomy tube. Return to the emergency Department with any worsening of your symptoms or any acute distress. Referrals: REHANA TAYLOR MD [Staff Physician] - 2-3 Days Time of Disposition: 03:28
== END 2018-12-27 03:34 | disposition home or self-care (01) ==
LOC: ED 01:04
DX: N99.528 Other complication of incontinent external stoma of urinary tract (principal); T83.032A Leakage of nephrostomy catheter, initial encounter; I10 Essential (primary) hypertension; E11.9 Type 2 diabetes mellitus without complications; Z87.442 Personal history of urinary calculi; Z87.891 Personal history of nicotine dependence; Z88.0 Allergy status to penicillin

== ENCOUNTER 2019-01-09 06:49 | Day surgery (SDC) | payer MEDICARE ==
[2019-01-09] MEDS ORDERED: SODIUM CHLORIDE 0.9% 500 ML 500 ML IV SCH (07:00)
[2019-01-09] MEDS ORDERED: SODIUM CHLORIDE 0.9% 500 ML 500 ML ONE (07:19)
[2019-01-09 07:35] LABS: Hematocrit 41.2 % (35.5-45.6); Hemoglobin 13.9 gm/dl (11.8-15.2); Mean Corpuscular HGB Conc 34 % (32-34); Mean Corpuscular Volume 90 fl (84-94); Platelet Count 219 K/mm3 (140-440); Red Blood Count 4.59 M/mm3 (3.65-5.03); Red Cell Distribution Width 13.6 % (13.2-15.2)
[2019-01-09 07:49] LABS: BUN/Creatinine Ratio 14; Blood Urea Nitrogen 13 mg/dL (9-20); Calcium 9.1 mg/dL (8.4-10.2); Hemolysis Index 5
[2019-01-09 07:51] LABS: INR 1.11 (0.87-1.13)
[2019-01-09 07:52] LABS: Partial Thromboplastin Time 28.1 Sec. (24.2-36.6)
[2019-01-09] MEDS ORDERED: fentaNYL 100 MCG/2 ML INJ ONE ×2 (08:25→11:23)
[2019-01-09] MEDS ORDERED: SODIUM CHLORIDE IRRI 500 ML 500 ML IR ONE (08:25)
[2019-01-09] MEDS ORDERED: LIDOCAINE (2%) 20 MG/1 ML VIAL 20 ML MDV INFILTRATI ONE (08:25)
[2019-01-09] MEDS ORDERED: MIDAZOLAM 2 MG/2 ML INJ ONE (08:25)
--- NOTE | 2019-01-09 08:43 | Short Stay Summary ---
Short Stay Documentation Date of service: 01/09/19 - History Principal diagnosis: Right nephrolithiasis Past Surgical History: Other (s/p right nephrostomy tube placement) Social history: no significant social history - Allergies and Medications Current Medications: Allergies Penicillins Adverse Reaction (Verified 11/26/18 12:29) HURTS ALL OVER Home Medications Medication Instructions Recorded Confirmed Last Taken Type Ondansetron [Zofran ODT TAB] 8 mg PO Q8HR #20 tab.rapdis 11/22/18 01/09/19 3 Days Ago Rx ~01/06/19 Ciprofloxacin HCl [Ciprofloxacin 250 mg PO BID #14 tablet 11/28/18 01/09/19 01/08/19 Rx TAB] Polyethylene Glycol 3350 [Miralax 17 gm PO QDAY #20 powd.pack 11/28/18 01/09/19 Unknown Rx 3350] oxyCODONE /ACETAMINOPHEN [Percocet 1 - 2 tab PO Q6HR PRN #10 tablet 11/28/18 01/09/19 Unknown Rx 5/325 mg] Aspirin [Adult Aspirin] 81 mg PO DAILY 01/09/19 01/09/19 3 Weeks Ago History ~12/19/18 Finasteride 1 tab PO DAILY 01/09/19 01/09/19 3 Weeks Ago History ~12/19/18 Simvastatin 20 mg PO DAILY 01/09/19 01/09/19 3 Weeks Ago History ~12/19/18 Tamsulosin [Flomax] 1 tab PO BID 01/09/19 01/09/19 3 Weeks Ago History ~12/19/18 glipiZIDE XL [Glucotrol Xl] 2.5 mg PO DAILY 01/09/19 01/09/19 3 Weeks Ago History ~12/19/18 Active Medications Sodium Chloride (Nacl 0.9% 500 Ml) 500 mls @ 50 mls/hr IV DIRECT ASHLEY - Physical exam General appearance: no acute distress Integumentary: no rash HEENT: Atraumatic Lungs: Normal air movement Breasts: deferred Heart: Regular rate Gastrointestinal: normal Male Genitourinary: deferred Rectal Exam: deferred Neurological: Normal speech - Brief post op/procedure progress note Date of procedure: 01/09/19 Pre-op diagnosis: Right nephrolithiasis Post-op diagnosis: same Procedure: Fluoroscopic guided removal of right nephrostomy tube, fluoroscopic guided placement of right nephroureteral stent Anesthesia: local Surgeon: FRANKLIN FERGUSON Estimated blood loss: none Pathology: none Condition: stable - Disposition Condition at discharge: Good Short Stay Discharge Plan Activity: advance as tolerated Weight Bearing Status: Weight Bear as Tolerated Diet: regular Wound: keep clean and dry, per your surgeon's advice Follow up with: ENE BOWER JR, MD [Primary Care Provider] - 7 Days
--- NOTE | 2019-01-09 09:20 | Operative Report ---
Operative Report Operative Report: Exam: Fluoroscopic guided removal of nephrostomy tube, nephrostogram, fluoroscopic guided placement of nephroureteral stent Clinical indication: Patient with history of right nephrolithiasis, nephroureteral stent required prior to percutaneous lithotripsy Date: 01/09/2019 Procedure: Following an explanation of the risks, benefits and alternatives; written informed consent was obtained. The patient was brought to the angiographic suite and placed in prone position on the examination table. Initial fluoroscopic images of the patient's right back demonstrated appropriate positioning of the patient's indwelling nephrostomy tube. Contrast was gently injected through the indwelling nephrostomy tube which demonstrated placement of the pigtail within the central aspect of the renal pelvis. The patient's right back and indwelling tube were prepped and draped in the usual sterile fashion. 1% lidocaine was used for anesthesia. Under fluoroscopic guidance, a 0.035 guidewire was advanced through the indwelling nephrostomy tube and of her nephrostomy tube removed intact. A 4 Montenegrin vertebral catheter was then advanced over the guidewire. Together the guidewire and catheter were then manipulated to the bladder. The guidewire was removed and contrast injected to document appropriate positioning within the bladder. The guidewire was then reinserted and coiled within the bladder several times. The vertebral catheter was removed. Under fluoroscopic guidance, a pigtail catheter was advanced over the guidewire to position the distal pigtail within the bladder allowing the catheter to traverse the ureter and exit the skin. Contrast was injected through the pigtail catheter to document appropriate positioning within the bladder. The catheter was securely fastened to the skin surface using 2-0 Ethilon suture and a sterile dressing applied. The patient tolerated the procedure well. There were no immediate post procedure competitions. Conscious sedation was performed under the guidance of radiologic nursing. Continuous cardiopulmonary monitoring was utilized. Impression: 1) Nephrostogram through indwelling nephrostomy tube demonstrated appropriate positioning of nephrostomy tube with moderate hydronephrosis. 2) Fluoroscopic guided removal of indwelling nephrostomy tube. 3) Fluoroscopic guided placement of nephroureteral stent
--- NOTE | 2019-01-09 10:13 | Anesthesia Consultation ---
Anesthesia Consult and Med Hx Date of service: 01/09/19 - Airway Anesthetic Teeth Evaluation: Dentures ROM Head & Neck: Adequate Mental/Hyoid Distance: Adequate Mallampati Class: Class II Intubation Access Assessment: Good - Pulmonary Exam CTA: Yes - Cardiac Exam Cardiac Exam: RRR - Pre-Operative Health Status ASA Pre-Surgery Classification: ASA2 Proposed Anesthetic Plan: General - Pulmonary Hx Smoking: Yes Hx Asthma: No COPD: No Hx Sleep Apnea: No - Cardiovascular System Hx Hypertension: Yes Hx Heart Attack/AMI: No Hx Angina: No - Central Nervous System Hx Psychiatric Problems: No - Other Systems Hx Cancer: Yes
--- NOTE | 2019-01-09 10:14 | Anesthesia Day of Surgery ---
Anesthesia Day of Surgery - Day of Surgery Patient Examined: Yes Patient H&P Reviewed: Yes Patient is NPO: Yes
[2019-01-09] MEDS ORDERED: SODIUM CHLORIDE 0.9% 500 ML 500 ML IV ONE (10:34)
[2019-01-09] MEDS ORDERED: LACTATED RINGERS 1,000 ML ONE ×2 (10:44→12:21)
[2019-01-09] MEDS ORDERED: MIDAZOLAM 2 MG/2 ML INJ IV NR (11:00)
[2019-01-09] MEDS ORDERED: LACTATED RINGERS 1,000 ML IV SCH (11:00)
[2019-01-09] MEDS ORDERED: PROPOFOL 200 MG/20 ML VIAL IV ONE (11:23)
[2019-01-09] MEDS ORDERED: LIDOCAINE MPF (2%) 20 MG/1 ML VIAL 5 ML ONE (11:23)
[2019-01-09] MEDS ORDERED: ROCURONIUM 50 MG/5 ML INJ IV ONE (11:30)
[2019-01-09] MEDS ORDERED: PHENYLEPHRINE/NS 1,000 MCG/10 ML SYRINGE (OR USE) IV ONE (11:46)
[2019-01-09] MEDS ORDERED: MINERAL OIL 30 ML ORAL LIQD ONE (12:12)
[2019-01-09] MEDS ORDERED: ePHEDrine SULFATE 50 MG/1 ML INJ ONE (12:13)
[2019-01-09] MEDS ORDERED: MINERAL OIL TP ONE (13:00)
[2019-01-09] MEDS ORDERED: SODIUM CHLORIDE 0.9% IRRIG SOLN 3000 ML IR ONE (13:00)
[2019-01-09] MEDS ORDERED: GLYCOPYRROLATE 0.4 MG/2 ML INJ ONE (13:13)
[2019-01-09] MEDS ORDERED: NEOSTIGMINE 10MG/10 ML INJ MDV ONE (13:13)
--- NOTE | 2019-01-09 13:40 | Post Operative Note ---
Date of procedure: 01/09/19 Pre-op diagnosis: large stones Post-op diagnosis: same Findings: large stones Procedure: perc nephrolithotomy Anesthesia: KATHRINE Surgeon: REHANA UDNN Estimated blood loss: minimal Pathology: list (stones) Specimen disposition: given to patient/family Condition: stable Disposition: PACU
--- NOTE | 2019-01-09 13:41 | Operative Report ---
PREOPERATIVE DIAGNOSES: Large right renal pelvic stone over 2 cm, huge bladder stone, ureteral stones, previous sepsis. POSTOPERATIVE DIAGNOSES: Large right renal pelvic stone over 2 cm, huge bladder stone, ureteral stones, previous sepsis. PROCEDURE: Right percutaneous nephrolithotomy. SURGEON: Dr. Taylor. ANESTHESIA: General. FINDINGS: This is a gentleman with a huge stone, right kidney. He has a perc tube placed when he was septic, now presents for treatment. DESCRIPTION OF PROCEDURE: The patient was brought to the operating room and placed on the operating table. Following induction of anesthesia, placed in a prone position, prepped and draped in usual sterile fashion. An Amplatz stiff wire coiled in the bladder and using the snake a safety wire was placed with the introducer sheath. That was secured with a silk. We started dilating over the snake to 14-Albanian. It was very tight along the fascia, so we used the 30-Albanian balloon. There was wasting of the balloon, so then we went back to the Amplatz, dilated 26, 28 and 30. Once we got to 30 and placed a 28 sheath, a large stone was seen. It was very soft and with grabbing it broken many pieces and with the ultrasound from the LithoClast suctioned out the rest of the stone. The patient tolerated the procedure well. A second wire was in the bladder and a double J was placed. There was a huge bladder stone. The question was to do a cystolithotomy which was operating on the bladder, but at this point, I did not want to do a cystolithotomy on him because we may have to do more ureteroscopy and the bladder would be weak, so we will followup with a cystoscopic evaluation, possible cystolithotripsy or open. A 22-[place] was placed. Minimal blood loss. The patient tolerated the procedure well and brought to recovery room, family notified and given the stones. JOB# [id number] LAINA/LANE
--- NOTE | 2019-01-09 13:42 | Discharge Summary ---
Short Stay Discharge Plan Activity: other (no straining ) Weight Bearing Status: Full Weight Bearing Diet: low fat, low cholesterol, low salt Wound: keep clean and dry Special Instructions: other (inc fluids ) Follow up with: ENE BOWER JR, MD [Primary Care Provider] - 7 Days REHANA DUNN MD [Staff Physician] - 7 Days
[2019-01-09] MEDS ORDERED: oxyCODONE /ACETAMINOPHEN 5-325MG TAB PO PRN (13:57)
--- NOTE | 2019-01-09 14:07 | Fluoroscopy Report ---
INTRAOPERATIVE FLUOROSCOPY: ABDOMEN INDICATION / CLINICAL INFORMATION: RT KIDNEY CALCULUS. TECHNIQUE: Intraoperative spot images were obtained during the procedure. FINDINGS: Images were obtained during placement of a right ureteral stent. Fluoroscopy Time: 2.3 minutes. Fluoroscopy Images: 11. Signer Name: Augusto Garner MD Signed: 01/09/2019 2:03 PM Workstation Name: [id number]
[2019-01-09] MEDS: HYDROmorphone 1 MG/1 ML INJ IV PRN ×2 (14:15→14:30)
--- NOTE | 2019-01-09 15:16 | Post Anesthesia Evaluation ---
- Post Anesthesia Evaluation Patient Participated: Yes Airway Patent: Yes Stable Respiratory Function: Yes Nausea/Vomiting: No Temp > 96.8F: Yes Pain Manageable: Yes Adequeate Hydration: Yes Anesthesia Complications: No Block Receding Appropriately: Not Applicable Patient on Ventilator: No
[2019-01-09 16:09] VITALS: BP 154/82
== END 2019-01-09 06:50 | disposition home or self-care (01) ==
LOC: CATHLABREC 06:49
PROVIDERS: ATTEND Urology
DX: N20.2 Calculus of kidney with calculus of ureter (principal); N21.0 Calculus in bladder; I10 Essential (primary) hypertension; Z90.5 Acquired absence of kidney; Z83.3 Family history of diabetes mellitus; Z88.0 Allergy status to penicillin; Z79.82 Long term (current) use of aspirin; Z98.890 Other specified postprocedural states; Z79.899 Other long term (current) drug therapy; Z79.01 Long term (current) use of anticoagulants; Z85.89 Personal history of malignant neoplasm of other organs and systems; Z82.49 Family history of ischemic heart disease and other diseases of the circulatory system
CPT/HCPCS: 36415; 50081; 50431; 50434; 80048; 82962; 85027; 85610; 85730; 86850; 86900; 86901; A4217; C1726; C1751; C1769; C1894; C2617; J1170; J1956; J2250; J2370; J2704; J2710; J3010; J7040; J7120; Q9967; 86920

== ENCOUNTER 2019-01-10 03:29 | Emergency (ER) | payer MEDICARE ==
--- NOTE | 2019-01-10 07:49 | Emergency Department Report ---
- General Chief Complaint: Abdominal Pain Stated Complaint: BLEEDING Time Seen by Provider: 01/10/19 07:46 Source: patient Mode of arrival: Ambulatory Limitations: No Limitations - History of Present Illness Initial Comments: Mr. Ratliff is a healthy 78-year-old male with history of [id number]-[id number] diabetes, dyslipidemia who presents with leakage bleeding from the nephrostomy wound site. Recently diagnosed with kidney stone. Nephrostomy tube was replaced on yesterday in the outpatient setting. Denies any trauma. Denies fever. Denies pain. His follow-up with urology is scheduled for 7 days. -: Gradual, Last night Location: other (right flank) Place: other (right nephrostomy tube placed on yesterday) Context: accidental Associated Symptoms: none - Related Data Home Medications Medication Instructions Recorded Confirmed Last Taken Aspirin [Adult Aspirin] 81 mg PO DAILY 01/09/19 01/09/19 3 Weeks Ago ~12/19/18 Finasteride 1 tab PO DAILY 01/09/19 01/09/19 3 Weeks Ago ~12/19/18 Simvastatin 20 mg PO DAILY 01/09/19 01/09/19 3 Weeks Ago ~12/19/18 Tamsulosin [Flomax] 1 tab PO BID 01/09/19 01/09/19 3 Weeks Ago ~12/19/18 glipiZIDE XL [Glucotrol Xl] 2.5 mg PO DAILY 01/09/19 01/09/19 3 Weeks Ago ~12/19/18 Previous Rx's Medication Instructions Recorded Last Taken Type Ondansetron [Zofran ODT TAB] 8 mg PO Q8HR #20 tab.rapdis 11/22/18 3 Days Ago Rx ~01/06/19 Ciprofloxacin HCl [Ciprofloxacin 250 mg PO BID #14 tablet 11/28/18 01/08/19 Rx TAB] Polyethylene Glycol 3350 [Miralax 17 gm PO QDAY #20 powd.pack 11/28/18 Unknown Rx 3350] oxyCODONE /ACETAMINOPHEN [Percocet 1 - 2 tab PO Q6HR PRN #10 tablet 11/28/18 Unknown Rx 5/325 mg] Allergies Allergy/AdvReac Type Severity Reaction Status Date / Time Penicillins AdvReac HURTS ALL Verified 11/26/18 12:29 OVER ED Review of Systems ROS: Stated complaint: BLEEDING Other details as noted in HPI Constitutional: denies: fever, malaise Gastrointestinal: denies: abdominal pain, nausea, vomiting Skin: denies: change in color Neurological: denies: weakness, numbness, paresthesias ED Past Medical Hx - Past Medical History Previous Medical History?: Yes Hx Hypertension: Yes Hx Heart Attack/AMI: No Hx Congestive Heart Failure: No Hx Diabetes: Yes Hx Kidney Stones: Yes (right side Nephro tube) Hx Asthma: No Hx COPD: No Additional medical history: Pancreatitis - Surgical History Past Surgical History?: Yes Additional Surgical History: Hernia, Right Nephrostomy Tube - Social History Smoking Status: Never Smoker Substance Use Type: None - Medications Home Medications: Home Medications Medication Instructions Recorded Confirmed Last Taken Type Ondansetron [Zofran ODT TAB] 8 mg PO Q8HR #20 tab.rapdis 11/22/18 01/09/19 3 Days Ago Rx ~01/06/19 Ciprofloxacin HCl [Ciprofloxacin 250 mg PO BID #14 tablet 11/28/18 01/09/19 01/08/19 Rx TAB] Polyethylene Glycol 3350 [Miralax 17 gm PO QDAY #20 powd.pack 11/28/18 01/09/19 Unknown Rx 3350] oxyCODONE /ACETAMINOPHEN [Percocet 1 - 2 tab PO Q6HR PRN #10 tablet 11/28/18 01/09/19 Unknown Rx 5/325 mg] Aspirin [Adult Aspirin] 81 mg PO DAILY 01/09/19 01/09/19 3 Weeks Ago History ~12/19/18 Finasteride 1 tab PO DAILY 01/09/19 01/09/19 3 Weeks Ago History ~12/19/18 Simvastatin 20 mg PO DAILY 01/09/19 01/09/19 3 Weeks Ago History ~12/19/18 Tamsulosin [Flomax] 1 tab PO BID 01/09/19 01/09/19 3 Weeks Ago History ~12/19/18 glipiZIDE XL [Glucotrol Xl] 2.5 mg PO DAILY 01/09/19 01/09/19 3 Weeks Ago History ~12/19/18 ED Physical Exam - General Limitations: No Limitations General appearance: alert, in no apparent distress - Head Head exam: Present: atraumatic - Eye Eye exam: Present: normal appearance - ENT ENT exam: Present: mucous membranes moist - Neck Neck exam: Present: normal inspection - Respiratory Respiratory exam: Absent: respiratory distress - GI/Abdominal GI/Abdominal exam: Present: soft. Absent: distended, tenderness, guarding, rebound - Extremities Exam Extremities exam: Present: normal inspection - Back Exam Back exam: Present: other (well-known covering dressing contains Serosanguineous drainage without leobardo blood, nephrostomy site: Sutures in place no surrounding erythema, no bleeding or drainage.) ED Course Vital Signs 01/10/19 01/10/19 03:37 06:23 Temperature 97.9 F 98.3 F Pulse Rate 117 H 92 H Respiratory 18 16 Rate Blood Pressure 147/81 Blood Pressure 125/72 [Left] O2 Sat by Pulse 96 99 Oximetry ED Medical Decision Making - Lab Data Vital Signs - 24 hr 01/10/19 01/10/19 03:37 06:23 Temperature 97.9 F 98.3 F Pulse Rate 117 H 92 H Respiratory 18 16 Rate Blood Pressure 147/81 Blood Pressure 125/72 [Left] O2 Sat by Pulse 96 99 Oximetry - Medical Decision Making Right sided nephrostomy site is clean dry and intact without active drainage or bleeding. No surrounding infection. Mr. Ratliff was given return instructions and reassurance. Critical care attestation.: If time is entered above; I have spent that time in minutes in the direct care of this critically ill patient, excluding procedure time. ED Disposition Clinical Impression: Complication of nephrostomy, Encounter for postoperative wound check Disposition: - TO HOME OR SELFCARE Is pt being admited?: No Does the pt Need Aspirin: No Condition: Stable Instructions: Nephrostomy Tube Care (ED)
[2019-01-10 08:38] VITALS: BP 132/77
== END 2019-01-10 08:40 | disposition home or self-care (01) ==
LOC: ED 03:29
DX: T83.032D Leakage of nephrostomy catheter, subsequent encounter (principal); I10 Essential (primary) hypertension; E11.9 Type 2 diabetes mellitus without complications; Z88.0 Allergy status to penicillin; Z79.899 Other long term (current) drug therapy; X58.XXXD Exposure to other specified factors, subsequent encounter
CPT/HCPCS: 99282

== ENCOUNTER 2019-02-05 12:57 | Observation (INO) | payer MEDICARE ==
--- NOTE | 2019-02-05 14:25 | Anesthesia Day of Surgery ---
Anesthesia Day of Surgery - Day of Surgery Patient Examined: Yes Patient H&P Reviewed: Yes Patient is NPO: Yes
--- NOTE | 2019-02-05 14:25 | Anesthesia Consultation ---
Anesthesia Consult and Med Hx - Airway Anesthetic Teeth Evaluation: Dentures ROM Head & Neck: Adequate Mental/Hyoid Distance: Adequate Mallampati Class: Class II Intubation Access Assessment: Good - Pulmonary Exam CTA: Yes - Cardiac Exam Cardiac Exam: RRR - Pre-Operative Health Status ASA Pre-Surgery Classification: ASA2 Proposed Anesthetic Plan: General - Pulmonary Hx Smoking: Yes (STOPPED 1979) Hx Sleep Apnea: No (JOHANNE PRE SCREEN HIGH RISK.) - Cardiovascular System Hx Hypertension: Yes (X 4 YRS) Hx Heart Attack/AMI: No Hx Angina: No - Central Nervous System Hx Psychiatric Problems: No - Other Systems Hx Cancer: No
[2019-02-05] MEDS ORDERED: ONDANSETRON 4 MG/2 ML INJ IV PRN ×2 (14:26→15:19)
[2019-02-05] MEDS ORDERED: HYDROmorphone 1 MG/1 ML INJ IV PRN (14:26)
[2019-02-05] MEDS: SODIUM CHLORIDE 0.9% 1000 ML 1,000 ML IV SCH ×2 (14:27→19:56)
[2019-02-05 14:55] LABS: Hematocrit 44.4 % (35.5-45.6); Hemoglobin 14.8 gm/dl (11.8-15.2)
[2019-02-05] MEDS ORDERED: LIDOCAINE MPF (2%) 20 MG/1 ML VIAL 5 ML ONE (15:14)
[2019-02-05] MEDS ORDERED: fentaNYL 100 MCG/2 ML INJ ONE ×2 (15:15→16:57)
[2019-02-05] MEDS ORDERED: PROPOFOL 200 MG/20 ML VIAL IV ONE (15:15)
[2019-02-05] MEDS ORDERED: oxyCODONE /ACETAMINOPHEN 5-325MG TAB PO PRN (15:19)
[2019-02-05] MEDS ORDERED: NALOXONE 0.4 MG/1 ML INJ IV PRN (15:19)
[2019-02-05] MEDS ORDERED: ZOLPIDEM 5 MG TAB PO PRN (15:19)
[2019-02-05] MEDS ORDERED: ACETAMINOPHEN 325 MG TAB PO PRN (15:19)
--- NOTE | 2019-02-05 15:19 | Post Operative Note ---
Pre-op diagnosis: bph bladder stone renal stones Post-op diagnosis: same Findings: as above Procedure: cysto cystolithotripsy turpnephroscopy Anesthesia: GETA Surgeon: REHANA DUNN Estimated blood loss: 50-100ml Pathology: list (prostate) Specimen disposition: to lab Condition: stable Disposition: PACU
--- NOTE | 2019-02-05 15:27 | XRay Report ---
ABDOMEN 1 VIEW INDICATION / CLINICAL INFORMATION: BLADDER/KIDNEY STONES. COMPARISON: CT abdomen and pelvis without contrast from 11/27/2018. FINDINGS: TUBES / LINES: None. BOWEL GAS PATTERN: No significant abnormality. FREE AIR / EXTRALUMINAL GAS: None seen. ADDITIONAL FINDINGS: The previously described right renal stones are not clearly seen and may have be en removed in the interval. The distal ureteral stones are not well-visualized radiographically. Patten valerie, some of these stones may remain. The previously seen large bladder stone is unchanged. A right u reteral stent is in good position. The previously seen right nephrostomy catheter has been replaced w ith a larger catheter that terminates over the right renal pelvis. Generalized atherosclerosis is aga in seen throughout the pelvis. Cholelithiasis is again noted. IMPRESSION: 1. Evidence of removal of most of the recently seen right renal stones. The previously seen right ure teral stones are not clearly seen radiographically. If there is concern for retained stones, a CT of the abdomen and pelvis without contrast would be helpful for further evaluation. 2. Additional findings as above. Signer Name: Michael Parker MD Signed: 02/05/2019 3:23 PM Workstation Name: [id number]
[2019-02-05] MEDS ORDERED: PHENYLEPHRINE/NS 1,000 MCG/10 ML SYRINGE (OR USE) IV ONE (15:55)
[2019-02-05] MEDS ORDERED: D5W/0.45% NACL/KCL 20 MEQ 20 MEQ/1,000 ML BAG IV SCH (16:00)
[2019-02-05] MEDS ORDERED: SODIUM CHLORIDE 0.9% IRRIG SOLN 3000 ML IR ONE (16:45)
[2019-02-05] MEDS ORDERED: HYDROmorphone 1 MG/1 ML INJ ONE (17:34)
--- NOTE | 2019-02-05 17:38 | XRay Report ---
Abdomen one fluoroscopic view. 02/05/2019. HISTORY: Bladder stone. FINDINGS: Removal of right percutaneous nephrostomy catheter. Double-J stent unchanged. A large lamel lated stone at the bladder was removed. Fluoroscopy time: 6 seconds. One fluoroscopic image was obtained. Signer Name: Asad Gaming MD Signed: 02/05/2019 5:34 PM Workstation Name: [id number]
--- NOTE | 2019-02-05 17:59 | Operative Report ---
PREOPERATIVE DIAGNOSIS: Huge bladder stone, previous renal stone, previous sepsis. POSTOPERATIVE DIAGNOSIS: Huge bladder stone, previous renal stone, previous sepsis. PROCEDURE: Cystoscopy, lithotripsy, transurethral resection of middle lobe of the prostate, flexible nephroscopy. SURGEON: Dr. Taylor. ANESTHESIA: General. FINDINGS: This is a gentleman with a huge bladder stone, previous large renal stones, he now presents for treatment. DESCRIPTION OF PROCEDURE: The patient was brought to the operating room and placed on the operating table. Following induction of anesthesia, placed in lithotomy position, prepped and draped in usual sterile fashion. Cystourethroscopy showed a prominent middle lobe with a huge bladder stone. Using the ultrasonic electrohydraulic lithotripsy the stone was broken into hundreds of pieces. These were elliked out. Small pieces had to be elliked out with the larger resectoscope sheath. At this point, the middle lobe was resected. Hemostasis was assured. We used the bipolar. The patient tolerated the procedure well. No significant bleeding. Flexible nephroscopy was done, showed no large stones in the kidney. Kidney looked great. A double J was seen and left. The patient tolerated the procedure well and brought to recovery room in stable condition. PLAN: Followup removal of double J electively. JOB# [id number] LAINA/LANE
[2019-02-05] MEDS ORDERED: TAMSULOSIN 0.4 MG CAP PO SCH (18:00)
[2019-02-05] MEDS: DOCUSATE SODIUM 100 MG CAP PO SCH (21:46)
[2019-02-06] MEDS: ceFAZolin/NS 1 GM/50 ML 1 GM/50 ML BAG IV SCH ×3 (00:07→11:16)
[2019-02-06] MEDS: SODIUM CHLORIDE 0.9% IRRIG SOLN 2000 ML IR SCH ×4 (00:14→07:14)
[2019-02-06 07:03] LABS: Basophils # (Auto) 0.1 K/mm3 (0.0-0.1); Basophils % (Auto) 0.4 % (0.0-1.8); Eosinophils # (Auto) 0.4 K/mm3 (0.0-0.4); Eosinophils % (Auto) 2.9 % (0.0-4.3); Hematocrit 43.6 % (35.5-45.6); Hemoglobin 14.6 gm/dl (11.8-15.2); Lymphocytes # (Auto) 1.8 K/mm3 (1.2-5.4); Lymphocytes % (Auto) 13.4 % (13.4-35.0); Mean Corpuscular HGB Conc 34 % (32-34); Mean Corpuscular Volume 89 fl (84-94); Monocytes % (Auto) 7.6 % (0.0-7.3); Platelet Count 205 K/mm3 (140-440); Red Blood Count 4.92 M/mm3 (3.65-5.03); Red Cell Distribution Width 13.8 % (13.2-15.2)
[2019-02-06 07:22] LABS: BUN/Creatinine Ratio 11; Blood Urea Nitrogen 10 mg/dL (9-20); Hemolysis Index 8
[2019-02-06 08:06] VITALS: BP 146/50
--- NOTE | 2019-02-06 08:11 | Consultation ---
History of Present Illness - Reason for Consult Consult date: 02/05/19 Medical management Requesting physician: REHANA DUNN - History of Present Illness Patient had bph, bladder stone and renal stones . S/p cysto, cystolithotripsy turpnephroscopy--Post op doing well.No complications. Past History Past Medical History: hyperlipidemia, other (BPH) Past Surgical History: Other (cystolithotripsy ,turpnephroscopy) Social history: lives with family, full code Family history: hypertension Medications and Allergies Allergies Allergy/AdvReac Type Severity Reaction Status Date / Time Penicillins AdvReac HURTS ALL Verified 11/26/18 12:29 OVER Home Medications Medication Instructions Recorded Confirmed Last Taken Type Polyethylene Glycol 3350 [Miralax 17 gm PO QDAY #20 powd.pack 11/28/18 02/05/19 02/02/19 Rx 3350] oxyCODONE /ACETAMINOPHEN [Percocet 1 - 2 tab PO Q6HR PRN #10 tablet 11/28/18 02/05/19 12/25/18 Rx 5/325 mg] Aspirin [Adult Aspirin] 81 mg PO DAILY 01/09/19 02/05/19 01/29/19 History Simvastatin 20 mg PO DAILY 01/09/19 02/05/19 02/03/19 History Tamsulosin [Flomax] 0.8 tab PO DAILY 01/09/19 02/05/19 02/04/19 History glipiZIDE XL [Glucotrol Xl] 2.5 mg PO DAILY 01/09/19 01/29/19 02/02/19 History Sulfamethoxazole/Trimethoprim 1 each PO BID 01/29/19 01/29/19 02/02/19 History [Bactrim 400-80 mg Tablet] Active Meds: Active Medications Acetaminophen (Tylenol) 650 mg PO Q4H PRN PRN Reason: Pain, Mild (1-3)/Fever > 100.5 Docusate Sodium (Colace) 100 mg PO BID ASHLEY Last Admin: 02/05/19 21:46 Dose: 100 mg Documented by: Hydromorphone HCl (Dilaudid) 0.25 mg IV Q10MIN PRN PRN Reason: Pain, Moderate (4-6) Last Admin: 02/05/19 17:36 Dose: 0.25 mg Documented by: Sodium Chloride (Nacl 0.9% 1000 Ml) 1,000 mls @ 100 mls/hr IV DIRECT ASHLEY Last Admin: 02/05/19 19:56 Dose: 100 mls/hr Documented by: Potassium Chloride/Dextrose/Sod Cl (D5w/0.45% Nacl/Kcl 20 Meq) 20 meq in 1,000 mls @ 100 mls/hr IV DIRECT ASHLEY Last Admin: 02/06/19 05:31 Dose: 100 mls/hr Documented by: Cefazolin Sodium (Ancef/Ns 1 Gm/50 Ml) 1 gm in 50 mls @ 100 mls/hr IV Q8H ASHLEY; Protocol Stop: 02/06/19 16:29 Last Admin: 02/06/19 00:07 Dose: 100 mls/hr Documented by: Naloxone HCl (Naloxone) 0.1 mg IV Q2MIN PRN PRN Reason: Res Rate </= 8 or 02 SAT < 92% Ondansetron HCl (Zofran) 4 mg IV ONCE PRN PRN Reason: Nausea And Vomiting Ondansetron HCl (Zofran) 4 mg IV Q8H PRN PRN Reason: Nausea And Vomiting Oxycodone/Acetaminophen (Percocet 5/325) 2 tab PO Q6H PRN PRN Reason: Pain, Moderate (4-6) Sodium Chloride (Nacl 0.9%) 2,000 ml IR DIRECT ASHLEY Last Admin: 02/06/19 07:14 Dose: 2,000 ml Documented by: Tamsulosin HCl (Flomax) 0.4 mg PO QPM ASHLEY Zolpidem Tartrate (Ambien) 5 mg PO QHS PRN PRN Reason: Sleep Last Admin: 02/05/19 21:51 Dose: 5 mg Documented by: Review of Systems All systems: negative Exam - Constitutional Vitals: Temp Pulse Resp BP Pulse Ox 97.9 F 79 20 118/72 98 02/06/19 07:41 02/06/19 07:41 02/06/19 07:41 02/06/19 07:41 02/06/19 07:41 General appearance: Present: no acute distress, well-nourished - EENT Eyes: Present: PERRL ENT: hearing intact, clear oral mucosa - Neck Neck: Present: supple, normal ROM - Respiratory Respiratory effort: normal Respiratory: bilateral: CTA - Cardiovascular Heart rate: 78 Rhythm: regular Heart Sounds: Present: S1 & S2. Absent: rub, click - Extremities Extremities: no ischemia, pulses intact, pulses symmetrical, No edema Peripheral Pulses: within normal limits - Abdominal General gastrointestinal: Present: soft, non-tender, non-distended, normal bowel sounds Male genitourinary: Present: normal - Rectal Rectal Exam: deferred - Integumentary Integumentary: Present: clear, warm, dry - Musculoskeletal Musculoskeletal: gait normal, strength equal bilaterally - Psychiatric Psychiatric: appropriate mood/affect, intact judgment & insight - Neurologic Neurologic: CNII-XII intact, moves all extremities - Allied Health Allied health notes reviewed: nursing, case management Results - Labs CBC & Chem 7: 02/06/19 06:30 02/06/19 06:30 Labs: Abnormal lab results 02/05/19 02/06/19 02/06/19 Range/Units 14:06 06:30 06:30 WBC 13.2 H (4.5-11.0) K/mm3 [place] % (Auto) 7.6 H (0.0-7.3) % [place] # 1.0 H (0.0-0.8) K/mm3 Seg Neutrophils % 75.7 H (40.0-70.0) % Seg Neutrophils # 10.0 H (1.8-7.7) K/mm3 Glucose 144 H (75-100) mg/dL POC Glucose 108 H (70-105) AXR FINDINGS: Removal of right percutaneous nephrostomy catheter. Double-J stent unchanged. A large lamellated stone at the bladder was removed. Assessment and Plan - Patient Problems (1) S/P TURP Current Visit: Yes Status: Acute Plan to address problem: Post op doing well Pain control (2) HLD (hyperlipidemia) Current Visit: Yes Status: Chronic Qualifiers: Hyperlipidemia type: mixed hyperlipidemia Qualified Code(s): E78.2 - Mixed hyperlipidemia Plan to address problem: On Statins (3) BPH (benign prostatic hyperplasia) Current Visit: Yes Status: Chronic Qualifiers: Lower urinary tract symptom presence: symptoms present Plan to address problem: Had TURP May not need Flomax anymore (4) DVT prophylaxis Current Visit: Yes Status: Acute Plan to address problem: On SCD's and GI prophylaxis
[2019-02-06] MEDS: DOCUSATE SODIUM 100 MG CAP PO SCH (09:14)
--- NOTE | 2019-02-06 09:50 | Progress Note ---
Assessment and Plan DOING WELL HOME WITH ALVINA Winston Date of service: 02/06/19 Principal diagnosis: aur Objective - Constitutional Vitals: Vital Signs - 12hr 02/05/19 02/06/19 02/06/19 23:27 04:08 07:00 Temperature 97.6 F 97.7 F 97 F L Pulse Rate 70 77 57 L Respiratory 17 17 0 L Rate Blood Pressure 147/74 117/55 Blood Pressure 146/50 [Left] O2 Sat by Pulse 98 96 96 Oximetry 02/06/19 07:41 Temperature 97.9 F Pulse Rate 79 Respiratory 20 Rate Blood Pressure 118/72 Blood Pressure [Left] O2 Sat by Pulse 98 Oximetry General appearance: Present: other - Neck Neck: supple Extremities: no ischemia - Gastrointestinal General gastrointestinal: Present: soft, non-tender - Labs CBC & Chem 7: 02/06/19 06:30 02/06/19 06:30 Labs: Abnormal lab results 02/05/19 02/06/19 02/06/19 Range/Units 14:06 06:30 06:30 WBC 13.2 H (4.5-11.0) K/mm3 Hudson % (Auto) 7.6 H (0.0-7.3) % Hudson # 1.0 H (0.0-0.8) K/mm3 Seg Neutrophils % 75.7 H (40.0-70.0) % Seg Neutrophils # 10.0 H (1.8-7.7) K/mm3 Glucose 144 H (75-100) mg/dL POC Glucose 108 H (70-105) Medications & Allergies - Medications Allergies/Adverse Reactions: Allergies Penicillins Adverse Reaction (Verified 11/26/18 12:29) HURTS ALL OVER Home Medications: Home Medications Medication Instructions Recorded Confirmed Last Taken Type Polyethylene Glycol 3350 [Miralax 17 gm PO QDAY #20 powd.pack 11/28/18 02/05/19 02/02/19 Rx 3350] oxyCODONE /ACETAMINOPHEN [Percocet 1 - 2 tab PO Q6HR PRN #10 tablet 11/28/18 02/05/19 12/25/18 Rx 5/325 mg] Aspirin [Adult Aspirin] 81 mg PO DAILY 01/09/19 02/05/19 01/29/19 History Simvastatin 20 mg PO DAILY 01/09/19 02/05/19 02/03/19 History Tamsulosin [Flomax] 0.8 tab PO DAILY 01/09/19 02/05/19 02/04/19 History glipiZIDE XL [Glucotrol Xl] 2.5 mg PO DAILY 01/09/19 01/29/19 02/02/19 History Sulfamethoxazole/Trimethoprim 1 each PO BID 01/29/19 01/29/19 02/02/19 History [Bactrim 400-80 mg Tablet] Active Medications: Generic Name Dose Route Start Last Admin Trade Name Freq PRN Reason Stop Dose Admin Acetaminophen 650 mg 02/05/19 15:19 Tylenol PO Q4H PRN Pain, Mild (1-3)/Fever > 100.5 Docusate Sodium 100 mg 02/05/19 22:00 02/06/19 09:14 Colace PO Not Given BID ASHLEY Famotidine 20 mg 02/06/19 10:00 02/06/19 09:13 Pepcid PO 20 mg QDAY ASHLEY Administration Hydromorphone HCl 0.25 mg 02/05/19 14:26 02/05/19 17:36 Dilaudid IV 0.25 mg Q10MIN PRN Administration Pain, Moderate (4-6) Sodium Chloride 1,000 mls @ 100 mls/hr 02/05/19 14:15 02/05/19 19:56 Nacl 0.9% 1000 Ml IV 100 mls/hr DIRECT ASHLEY Administration Potassium Chloride/Dextrose/Sod Cl 20 meq in 1,000 mls @ 100 mls/hr 02/05/19 16:00 02/06/19 05:31 D5w/0.45% Nacl/Kcl 20 Meq IV 100 mls/hr DIRECT ASHLEY Administration Cefazolin Sodium 1 gm in 50 mls @ 100 mls/hr 02/05/19 16:00 02/06/19 09:13 Ancef/Ns 1 Gm/50 Ml IV 02/06/19 16:29 100 mls/hr Q8H ASHLEY Administration Protocol Naloxone HCl 0.1 mg 02/05/19 15:19 Naloxone IV Q2MIN PRN Res Rate </= 8 or 02 SAT < 92% Ondansetron HCl 4 mg 02/05/19 14:26 Zofran IV ONCE PRN Nausea And Vomiting Ondansetron HCl 4 mg 02/05/19 15:19 Zofran IV Q8H PRN Nausea And Vomiting Oxycodone/Acetaminophen 2 tab 02/05/19 15:19 Percocet 5/325 PO Q6H PRN Pain, Moderate (4-6) Sodium Chloride 2,000 ml 02/05/19 16:00 02/06/19 07:14 Nacl 0.9% IR 2,000 ml DIRECT ASHLEY Administration Tamsulosin HCl 0.4 mg 02/05/19 18:00 Flomax PO QPM ASHLEY Zolpidem Tartrate 5 mg 02/05/19 15:19 02/05/19 21:51 Ambien PO 5 mg QHS PRN Administration Sleep
--- NOTE | 2019-02-06 09:51 | Discharge Summary ---
Short Stay Discharge Plan Activity: other (NO STRAINING ) Weight Bearing Status: Full Weight Bearing Diet: low fat, low cholesterol, low salt Wound: open to air Special Instructions: other ([facility] ) Durable Medical Equipment Needed Upon Discharge: other ([facility] ) Follow up with: ENE BOWER JR, MD [Primary Care Provider] - 7 Days
[2019-02-06] MEDS ORDERED: FAMOTIDINE 20 MG TAB PO SCH (10:00)
== END 2019-02-06 12:15 | disposition home or self-care (01) ==
LOC: OR 12:57 → 3B-SURG 15:20
PROVIDERS: ADMIT Urology; ATTEND Urology
DX: N21.0 Calculus in bladder (principal); E78.5 Hyperlipidemia, unspecified; N40.0 Benign prostatic hyperplasia without lower urinary tract symptoms; Z98.890 Other specified postprocedural states; Z79.82 Long term (current) use of aspirin
CPT/HCPCS: 36415; 52318; 52601; 74018; 80048; 82962; 85014; 85018; 85025; 86850; 86900; 86901; 88305; 96365; 96366; 96375; A4217; G0378; J0690; J1170; J1956; J2370; J2704; J3010; J7030